=== PATIENT | female | born 2000 | race Caucasian/White ===

== ENCOUNTER 2019-06-16 14:04 | Emergency (ER) | payer OTHER ==
[2019-06-16 14:34] VITALS: BP 134/66
[2019-06-16] MEDS ORDERED: Acetaminophen TAB* 325 MG PO ONE (14:56)
[2019-06-16] MEDS ORDERED: Dexamethasone IV* 4 MG/ML 1 ML (4 MG) PO ONE (15:15)
--- NOTE | 2019-06-16 15:21 | ED ---
Back Pain - HPI Summary HPI Summary: 18 yr old female with the complaint of low back pain. Onset of pain was a week ago. She picked up a feed bag and felt pain in the low back. The pain is worse with moving, bending and sitting. The pain radiates across low back and down the lateral thighs. No bowel or bladder incontinence. No focal weakness or numbness in legs. The patient states it hurts worse to bear down to have a BM. - History of Current Complaint Chief Complaint: UCBackPain Stated Complaint: LOW BACK PAIN Time Seen by Provider: 06/16/19 14:47 Hx Last Menstrual Period: 06/02/19 Pain Intensity: 7 - Allergies/Home Medications Allergies/Adverse Reactions: Allergies Allergy/AdvReac Type Severity Reaction Status Date / Time anesthesia Allergy Vomiting Uncoded 06/16/19 14:35 Home Medications: Home Medications Bcp 06/16/19 [History] PMH/Surg Hx/FS Hx/Imm Hx - Surgical History Surgery Procedure, Year, and Place: tonsilectomy Infectious Disease History: No Infectious Disease History: Denies: Traveled Outside the [place] in Last 30 Days - Family History Known Family History: Positive: None - Social History Occupation: Employed Full-time Alcohol Use: Occasionally Substance Use Type: Reports: None Smoking Status (MU): Never Smoked Tobacco Review of Systems Constitutional: Negative Positive: Other - low back pain All Other Systems Reviewed And Are Negative: Yes Physical Exam Triage Information Reviewed: Yes Vital Signs On Initial Exam: Initial Vitals Temp Pulse Resp BP Pulse Ox 98.6 F 84 16 134/66 100 06/16/19 14:27 06/16/19 14:27 06/16/19 14:27 06/16/19 14:27 06/16/19 14:27 Vital Signs Reviewed: Yes Appearance: Positive: Well-Appearing, No Pain Distress Skin: Positive: Warm, Skin Color Reflects Adequate Perfusion Head/Face: Positive: Normal Head/Face Inspection Eyes: Positive: EOMI ENT: Positive: Normal ENT inspection Neck: Positive: Nontender Respiratory/Lung Sounds: Positive: Clear to Auscultation, Breath Sounds Present Cardiovascular: Positive: RRR. Negative: Murmur Abdomen Description: Positive: Nontender. Negative: Distended Musculoskeletal: Positive: Pain @, Other - low back with limited ROM due to pain. She has no midline tenderness of lumbar spine. No rash, no bruise. Neurological: Positive: Sensory/Motor Intact, Alert, Oriented to Person Place, Time, CN Intact II-III, Normal Gait, Speech Normal Diagnostics - Vital Signs Vital Signs Temp Pulse Resp BP Pulse Ox 06/16/19 14:27 98.6 F 84 16 134/66 100 - Laboratory Lab Results: Lab Results 06/16/19 06/16/19 Range/Units 15:04 15:06 POC Urine Color Yellow POC Urine Clarity Clear POC Urine pH 6.5 (5-9) POC Ur Specif Dorr 1.020 (1.010-1.030) POC Urine Protein Negative (Negative) POC Ur Glucose (UA) Negative (Negative) POC Urine Ketones Negative (Negative) POC Urine Blood Negative (Negative) POC Urine Nitrite Negative (Negative) POC Urine Bilirubin Negative (Negative) POC Urine Urobilinogen 0.2 (Negative) POC U Leukocyte Esteras 1+ A (Negative) POC Ur Test Negative (Negative) Lab Statement: Any lab studies that have been ordered have been reviewed, and results considered in the medical decision making process. - Radiology lumbar sacral Radiology Interpretation Completed By: Radiologist - nad Back Pain Course/Dx - Course Course Of Treatment: 18 yr old with low back pain. Rx with medrol dose daren. Flexeril script. FU with PMD referral. Any worsening symptoms then she will go to the ER for further evaluation. - Diagnoses Provider Diagnoses: Back pain Discharge ED - Sign-Out/Discharge Documenting (check all that apply): Patient Departure All imaging exams completed and their final reports reviewed: Yes - Discharge Plan Condition: Good Disposition: HOME Prescriptions: Cyclobenzaprine TAB* [Flexeril 10 MG TAB*] 10 mg PO BID PRN #10 tab PRN Reason: Spasms - Muscle methylPREDNISolone [Medrol] 4 mg PO .PER DAREN #1 tab.[id number] Patient Education Materials: Acute Low Back Pain (ED) Referrals: No Primary Care Phys,NOPCP [Primary Care Provider] - [facility] [Outside] - 2 Days Additional Instructions: ANY WORSENING OF YOUR PAIN, OR IF YOUR SYMPTOMS DO NOT IMPROVE IN THE NEXT 2 days, YOU SHOULD GO TO THE ER FOR FURTHER EVALUATION AND MRI OF YOUR SPINE> - Billing Disposition and Condition Condition: GOOD Disposition: Home
== END 2019-06-16 16:37 | disposition home or self-care (01) ==
LOC: UCCORT 14:04
DX: M54.5 Low back pain (principal); Z88.4 Allergy status to anesthetic agent
CPT/HCPCS: 72110; 81003; 84702; 87086; 99202; A9270-GY; G0463; J1100